=== PATIENT | male | born 1945 | race Caucasian/White ===

== ENCOUNTER → 2016-06-24 | Outpatient (CLI) | payer MEDICARE, OTHER ==
[2016-02-29 13:15] VITALS: BP 148/72
[~2016-06-24] MED LIST: ASPI-482 PO; CYCL10TA2 PO; HYDR-2679 PO; IBUP-1007 PO
--- NOTE | 2016-06-24 10:23 | KCIC ---
PROCEDURE CT chest without contrast dated 06/24/2016. HISTORY Followup lung nodule. TECHNIQUE Contiguous axial imaging of the chest performed without the administration of intravenous contrast.Exposure: One or more of the following individualized dose reduction techniques were utilized for this exam: 1. Automated exposure control. 2. Adjustment of the mA and/or kV according to patient size. 3. Use of iterative reconstruction technique. COMPARISON 05/28/2015. FINDINGS Heart size within normal limits. Dense coronary artery calcifications, unchanged. Mild ectasia of the ascending thoracic aorta measuring 3.9 centimeters transverse dimension, stable. There non pathologically enlarged mediastinal lymph nodes. No mediastinal, hilar or axillary lymphadenopathy. Thyroid gland unremarkable. Central airways are patent. Mild diffuse bronchial wall thickening. Lungs are clear without focal consolidation. Previously described right upper lobe pulmonary nodule is no longer visualized. No pleural effusion or pneumothorax. Vascular interstitium within normal limits. Limited images of the upper abdomen are unremarkable. No acute bony abnormality. Multilevel spondylosis. IMPRESSION - No acute abnormality of chest. No significant pulmonary nodule or mass. - Coronary artery calcifications and mild aortic ectasia, unchanged. Electronically signed by: Harsh Gonzalez (Jun 24, 2016 10:22:40)
== END | disposition home or self-care (01) ==
LOC: KCIC CT 09:48
PROVIDERS: ATTEND Family Medicine
DX: I25.10 Atherosclerotic heart disease of native coronary artery without angina pectoris (principal)
CPT/HCPCS: 71250

== ENCOUNTER → 2017-10-20 | Outpatient (CLI) | payer MEDICARE, OTHER | END | disposition home or self-care (01) | LOC: KCIC MRI 08:33 | DX: M51.16 Intervertebral disc disorders with radiculopathy, lumbar region (principal); M48.061 Spinal stenosis, lumbar region without neurogenic claudication; M12.88 Other specific arthropathies, not elsewhere classified, other specified site | CPT/HCPCS: 72148; 73502 ==

== ENCOUNTER → 2018-06-02 | Outpatient (CLI) | payer MEDICARE, OTHER ==
[2016-02-29 13:15] VITALS: BP 148/72
--- NOTE | 2018-06-02 16:24 | KCIC ---
Indication:Right foot second toe pain. TECHNIQUE: 3 views of the right foot and 3 views of the second toe COMPARISON:None FINDINGS/ impression: No acute fracture or dislocation. Electronically signed by: Stiven Osuna DO (06/02/2018 4:21 PM) [facility]
--- NOTE | 2018-06-02 16:24 | KCIC ---
Indication:Right foot second toe pain. TECHNIQUE: 3 views of the right foot and 3 views of the second toe COMPARISON:None FINDINGS/ impression: No acute fracture or dislocation. Electronically signed by: Stiven Osuna DO (06/02/2018 4:21 PM) [facility]
== END | disposition home or self-care (01) ==
LOC: KCIC 13:41
PROVIDERS: ATTEND Family Medicine
DX: M79.674 Pain in right toe(s) (principal); M79.671 Pain in right foot
CPT/HCPCS: 73630; 73660